=== PATIENT | female | born 1945 | race Asian ===

== ENCOUNTER 2016-05-22 13:13 | Emergency (ER) | payer MEDICARE, OTHER ==
[~2016-05-22] VITALS: Ht 157.5 cm; Wt 58.0 kg
[2016-05-22] MEDS ORDERED: HYDR25TA PO (13:23)
[2016-05-22] MEDS ORDERED: CARV12 PO (13:23)
[2016-05-22 14:25] LABS: APPEARANCE,URINE CLOUDY (CLEAR); GLUCOSE, URINE (UA) NEGATIVE (NEGATIVE); KETONES,URINE NEGATIVE (NEGATIVE); LEUKOCYTE ESTERASE ,URINE NEGATIVE (NEGATIVE); OCCULT BLOOD,URINE SMALL (NEGATIVE); PROTEIN,URINE NEGATIVE (NEGATIVE)
[2016-05-22 14:27] LABS: ADD UA MICROSCOPIC YES
[2016-05-22] MEDS ORDERED: ASPIRIN 81 MG CHEWABLE TABLET PO ONE (14:30)
[2016-05-22 14:31] LABS: SQUAMOUS EPITHELIAL CELL,UR Few /LPF (None Seen); WBC,URINE 0-2 /HPF (0-5)
[2016-05-22 14:34] LABS: BASOPHILS # (AUTO) 0.07 K/uL (0.00-0.20); EOSINOPHILS # (AUTO) 0.12 K/uL (0.00-0.70); EOSINOPHILS % (AUTO) 1.65 % (1.0-6.0); HEMOGLOBIN 11.9 g/dL (12.0-16.0); LYMPHOCYTES # (AUTO) 1.4 K/uL (1.0-4.8); LYMPHOCYTES % (AUTO) 19.2 % (22.0-44.0); MEAN CORPUSCULAR HEMOGLOBIN 27.5 pg (26.0-34.0); MEAN CORPUSCULAR HGB CONC 32.2 G/dL (31.0-37.0); MEAN CORPUSCULAR VOLUME 85 fL (80-100); MONOCYTES # (AUTO) 0.4 K/uL (0.1-1.0); MONOCYTES % (AUTO) 5.7 % (2.0-9.0); NEUTROPHILS # (AUTO) 5.2 K/uL (1.8-7.7); NEUTROPHILS % (AUTO) 72.5 % (40.0-70.0); PLATELET COUNT (AUTO) 185 K/uL (150-450); RED BLOOD CELL COUNT(AUTO) 4.33 MIL/uL (4.00-5.20); RED CELL DISTRIBUTION WIDTH 14.5 % (11.5-14.5); WHITE BLOOD COUNT (AUTO) 7.2 K/uL (4.5-11.0)
[2016-05-22] MEDS ORDERED: ASPI-1061 PO (14:37)
[2016-05-22 14:43] LABS: ANION GAP 9 mmol/L (8-16); CARBON DIOXIDE 31 mmol/L (22-29); CHLORIDE 98 mmol/L (98-107); CREATININE 0.79 mg/dL (0.60-1.30); GLOMERULAR FILTR. RATE CALC > 60 mL/min (>60); SODIUM SERUM 138 mmol/L (136-145); UREA NITROGEN, BLOOD 17 mg/dL (7-18)
[2016-05-22 14:47] LABS: PROTHROMBIN TIME 10.5 SEC (9.4-11.6)
[2016-05-22 15:01] LABS: B-TYPE NATRIURETIC PEPTIDE 51 pg/mL (0-100)
[2016-05-22 15:09] LABS: ALANINE AMINOTRANSFERASE 17 U/L (12-78); ALBUMIN 3.9 g/dL (3.4-5.0); ASPARTATE AMINOTRANSFERASE 22 U/L (15-37); BILIRUBIN,TOTAL 0.4 mg/dL (0.1-1.0); CREATINE KINASE MB 0.9 ng/mL (0-5); CREATINE KINASE, TOTAL 119 U/L (26-192); TOTAL PROTEIN, SERUM 8.2 g/dL (6.4-8.2)
[2016-05-22] MEDS ORDERED: SODIUM CHLORIDE 0.9% 500 ML IV ONE (15:30)
[2016-05-22] MEDS ORDERED: CIPROFLOXACIN HCL 250 MG TABLET PO ONE (15:30)
[2016-05-22] MEDS ORDERED: ONDANSETRON HCL 4 MG/2 ML VIAL IVP ONE (15:30)
[2016-05-22] MEDS ORDERED: POTASSIUM CHLORIDE 20 MEQ ER TABLET PO ONE (15:30)
[2016-05-22 15:43] LABS: THYROID STIMULATING HORMONE 2.07 uIU/mL (0.36-3.74)
[2016-05-22 17:14] VITALS: BP 136/75
== END 2016-05-22 17:43 | disposition home or self-care (01) ==
LOC: EDUNIT# 13:13 → EMS 13:18
DX: R00.2 Palpitations (principal); N39.0 Urinary tract infection, site not specified; R11.2 Nausea with vomiting, unspecified
CPT/HCPCS: 36415; 71010; 80053; 81001; 82550; 82553; 83880; 84443; 84484; 85025; 85610; 85730; 87086; 93005; 96361; 96374; 99285; J2405; J7040